=== PATIENT | female | born 1970 | race Caucasian/White ===

== ENCOUNTER 2018-01-24 16:52 | Inpatient (IN) | payer BC, SELFPAY ==
[2018-01-24] MEDS ORDERED: diphenhydrAMINE 50 MG/ML VIAL ONE (17:16)
[2018-01-24] MEDS ORDERED: Acetaminophen 500 MG TAB ONE (17:16)
[2018-01-24] MEDS ORDERED: Metoclopramide HCl 10 MG/2 ML VIAL ONE (17:16)
[2018-01-24 17:22] LABS: #Basophils 0.1 thou/uL (0.0-0.2); #Lymphocytes 3.4 thou/uL (1.20-3.40); #Monocytes 1.9 thou/uL (0.11-0.59); #Neutrophils 12.5 thou/uL (1.40-6.50); %Basophils 0.5 % (0.0-1.0); %Eosinophils 0.2 % (0.0-10.0); %Monocytes 10.5 % (0.0-10.0); %Neutrophils 69.8 % (42.0-75.0); Hemoglobin 14.9 g/dL (12.0-16.0); Mean Corpuscular HGB CONC 35.9 g/dL (32.0-36.0); Mean Corpuscular Hemoglobin 33.2 pg (27.0-31.0); Mean Corpuscular Volume 92.6 fl (81.0-99.0); Platelet Count 360 thou/uL (130-400); RBC Distribution Width 11.4 % (11.5-14.5); Red Blood Cell (RBC) Count 4.49 mill/uL (4.20-5.40); White Blood Cell (WBC) Count 17.9 thou/uL (4.8-10.8)
[2018-01-24 17:23] LABS: Bilirubin Negative (Negative); Blood, Urine Moderate (Negative); Clarity CLOUDY (Clear); Glucose, Urine (Dipstick) Negative (Negative); Leukocyte Moderate (Negative); Nitrite Positive (Negative); Protein, Urine (Dipstick) 30 mg/dL (Neg-Trace); Specific Gravity, Urine 1.016 (1.002-1.036)
[2018-01-24 17:25] LABS: Bacteria/HPF 4+ HPF (None Seen); Hyaline Casts/LPF 0-3 HYALINE CAST LPF (0-3 Hyaline); Pathc Cast-AUWi Flag 0.14 (0-2.49); RBC/HPF 21-50 HPF (0-3); Squamous Epithelial 0-3 HPF (0-3); WBC/HPF 21-50 HPF (0-3)
[2018-01-24 17:48] LABS: ALT (SGPT) 33 U/L (8-55); AST (SGOT) 32 U/L (5-34); Albumin 4.4 g/dL (3.5-5.0); Alkaline Phosphatase 79 U/L (40-150); Anion Gap 16 mmol/L (10-20); BUN (Urea Nitrogen) 11 mg/dL (7.0-18.7); Bilirubin, Total 1.1 mg/dL (0.2-1.2); Calc. Creatinine Clearance 0 mL/min (70-130); Calcium 9.3 mg/dL (7.8-10.44); Carbon Dioxide 19 mmol/L (22-29); Chloride 104 mmol/L (98-107); Estimated GFR-MDRD 73; Globulin 3.5 g/dL (2.4-3.5); Glucose 143 mg/dL (70-105); Protein, Total 7.9 g/dL (6.0-8.3); Sodium 135 mmol/L (136-145)
[2018-01-24] MEDS ORDERED: cefTRIAXone\\ROCEPHIN 2 GM in Sodium Chloride 0.9% 100 ML IVPB ONE (18:00)
[2018-01-24] MEDS ORDERED: cefTRIAXone\\ROCEPHIN 2 GM VIAL ONE (18:06)
[2018-01-24] MEDS ORDERED: Ketorolac Tromethamine 30 MG/ML VIAL ONE (18:27)
--- NOTE | 2018-01-24 19:13 | CT ---
CT ABDOMEN AND PELVIS WITHOUT IV CONTRAST 01/24/18 Multiple axial tomograms obtained through the abdomen and pelvis without IV enhancement. INDICATIONS: Fever, hematuria, UTI. Lung bases are clear. Liver, spleen and pancreas appear unremarkable given limitations of a noncontrast study. Patient is p ost cholecystectomy. Adrenal glands are normal. Kidneys show no evidence of hydronephrosis. No evidence of urinary tract calculus. Kidneys unremarkab le for an nonenhanced study. Bowel loops appear normal. Appendix appears normal. Stool throughout colon. Images through pelvis show evidence of hysterectomy. Urinary bladder unremarkable. No adenopathy. There is nonspecific haziness in the mesentery. More prominent in the left abdomen. IMPRESSION: 1. Mesenteric haziness more prominent in the left abdomen. This is nonspecific but can be seen w ith mesenteritis. 2. Otherwise no acute intra-abdominal process identified. POS: KALYN
[2018-01-24] MEDS ORDERED: Ondansetron ODT 4 MG TAB SL PRN (19:39)
[2018-01-24] MEDS ORDERED: Acetaminophen 325 MG TAB PO PRN (19:39)
[2018-01-24] MEDS ORDERED: Ondansetron HCl/PF 4 MG/2 ML Vial IVP PRN (19:39)
[2018-01-24] MEDS ORDERED: Temazepam 15 MG CAP PO PRN (20:14)
[2018-01-24] MEDS ORDERED: hydrALAZINE 20 MG/ML VIAL SLOW IVP PRN (20:14)
[2018-01-24] MEDS ORDERED: Senokot 8.6 MG TAB PO PRN (20:14)
[2018-01-24] MEDS ORDERED: Lorazepam 1 MG TAB PO PRN (20:14)
[2018-01-24] MEDS ORDERED: cloNIDine 0.1 MG TAB PO PRN (20:14)
[2018-01-24] MEDS ORDERED: Loratadine 10 MG TAB PO PRN (20:14)
[2018-01-24] MEDS ORDERED: Diabetic Tussin 200 MG/10 ML UDCUP PO PRN (20:14)
[2018-01-24] MEDS ORDERED: Bisacodyl 5 MG TAB PO PRN (20:14)
[2018-01-24] MEDS ORDERED: Benzonatate 100 MG CAP PO PRN (20:14)
[2018-01-24] MEDS ORDERED: Calcium Carbonate 500 MG ChewTAB PO PRN (20:14)
[2018-01-24] MEDS ORDERED: Mag-Al 1200 mg/1200 mg/30 ML UDCUP PO PRN (20:14)
[2018-01-24] MEDS ORDERED: traMADol HCl 50 MG TAB PO PRN (20:14)
[2018-01-24] MEDS ORDERED: Pramipexole Di-HCl 0.25 MG TAB PO PRN (20:18)
[2018-01-24] MEDS ORDERED: CERTOLIZUMAB PEGOL 400 MG SQ SCH (20:30)
--- NOTE | 2018-01-24 21:14 | HP ---
PRIMARY CARE PHYSICIAN: Out of town in [facility], Dr. Paresh Newton. CHIEF COMPLAINT: Dysuria and increased urinary frequency as well as fever and chills. HISTORY OF PRESENT ILLNESS: Ms. Sultana is a very pleasant 47-year-old female with history of rheuma toid arthritis on immunosuppressive medication as well as history of recurrent urinary tract infectio n including ESBL UTI, who presented to the emergency room with above-mentioned complaint. History is mainly obtained by the patient herself and electronic medical records have been reviewed. Case has been discussed with emergency room physician. She was last admitted to our facility in March last y ear for treatment for acute pancreatitis of unclear etiology. Today, she presented to the emergency room as she has been having about 5-day symptoms of generalized malaise, low back pain and urinary frequency. She tried some leftover antibiotics including Bactrim at home without any relief. She has been running low grade fevers and has been having chills. When her symptoms did not resolve with outpatient antibiotic, she presented to the ER. She reports that she has history of recurrent urinary tract infection and follows up with a urologist in the [facility]. She has been prescribed Macrobid a few days ago, but that did not help her symptoms as well. Upon presentation to the emergency room, she had high fever at 104 degrees rectally and was tachycard ic with a pulse of 124. Her blood work revealed leukocytosis with WBCs of 17.9 and she had elevated lactic acid at 3.4. Her urinalysis had multiple leukocyte esterase, rbc's, wbc's and bacteria. She received IV Rocephin in the emergency room and is now being admitted to the hospital for sepsis secon reji to urinary tract infection. PAST MEDICAL HISTORY: 1. Rheumatoid arthritis, on immunosuppressive medications. 2. History of ESBL urinary tract infection. 3. Metabolic syndrome. 4. Nonalcoholic steatohepatitis. 5. History of Clostridium difficile colitis. 6. Mild depression. 7. History of pancreatitis of unclear etiology in 2017. PAST SURGICAL HISTORY: Cholecystectomy, hysterectomy, breast implants. ALLERGIES: No medication allergies. 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 FAMILY HISTORY: No history of GI malignancy. Heart disease runs in her family. CURRENT HOME MEDICATIONS: As follows: Aldactone 100 mg daily, Cimzia 400 mg subcutaneous as directe d, Prevacid 15 mg daily, Celexa 60 mg daily, and pramipexole 0.25 mg p.r.n. REVIEW OF SYSTEMS: The following complete review of systems was negative, unless otherwise mentioned in the HPI or below: Constitutional: Weight loss or gain, ability to conduct usual activities. Sk in: Rash, itching. Eyes: Double vision, pain. ENT/Mouth: Nose bleeding, neck stiffness, pain, te nderness. Cardiovascular: Palpitations, dyspnea on exertion, orthopnea. Respiratory: Shortness of breath, wheezing, cough, hemoptysis, fever or night sweats. Gastrointestinal: Poor appetite, abdom inal pain, heartburn, nausea, vomiting, constipation, or diarrhea. Genitourinary: Urgency, frequenc y, dysuria, nocturia. Musculoskeletal: Pain, swelling. Neurologic/Psychiatric: Anxiety, depressio n. Allergy/Immunologic: Skin rash, bleeding tendency. It is negative except for those mentioned in the history and physical. LABORATORY DATA: CBC shows WBC 17.9 with 69% neutrophils, otherwise unremarkable. Serum chemistries : Sodium 135, bicarbonate 19, blood sugar 143, lactic acid 3.4. Urinalysis was positive for protein , blood, nitrite, leukocyte esterase, wbc, rbc and bacteria. CT scan of the abdomen and pelvis witho ut contrast is done and it is negative for any nephrolithiasis or pyelonephritis. She has slight mes enteric haziness in the left abdomen, which can be seen with mesenteritis. PHYSICAL EXAMINATION: VITAL SIGNS: Most recent vital signs, temperature 100.2, pulse of 99, respirations 18, saturating 95 % on room air, blood pressure 97/62. GENERAL: No acute distress, awake, alert, oriented x3. HEENT: Mucous membrane is moist and pink. No oropharyngeal exudate or erythema. Head is normocepha lic, atraumatic. Pupils equal, reactive to light and accommodation. NECK: Supple without any lymphadenopathy, JVD or bruit. CHEST: Clear to auscultation without any wheezing, rales or rhonchi. Rhythm is regular without any murmur, rubs or gallops. ABDOMEN: Soft, nontender, nondistended, positive bowel sounds, no CVA tenderness. EXTREMITIES: Free of any cyanosis, clubbing, or edema. NEUROLOGIC: Nonfocal. SKIN: Free of any rashes or bruises. PSYCHIATRIC: Normal affect. IMPRESSION AND PLAN: 1. Sepsis. This is secondary to urinary tract infection. The patient has history of extended spect rum beta-lactamase urinary tract infection, and for this reason, she will be treated with meropenem f or now. We will follow the results of the urine and blood cultures. Continue gentle IV fluid for hy dration and sepsis. Repeat the lactic acid as per the sepsis protocol. At this time, there is no ev idence of nephrolithiasis or hydronephrosis or pyelonephritis. 2. Hyponatremia, likely secondary to ongoing infection and poor p.o. intake. We will start on huan l saline and monitor closely. 3. History of rheumatoid arthritis. Continue home medications as below. 4. History of Clostridium difficile colitis. Currently, no symptoms. 5. Deep venous thrombosis and gastrointestinal prophylaxis. 6. P.r.n. medications and supportive care. DISPOSITION: Ms. Sultana is currently being admitted to the hospital for sepsis and urinary tract in fection. Further management will depend upon her clinical course. Estimated length of stay is at ast 2-3 midnights.
[2018-01-24] MEDS: MEROPENEM 1 GM/50 ML 1 GM in Premix Bag 1 BAG IVPB SCH (21:20)
[2018-01-24] MEDS: Sodium Chloride 0.9% 1,000 ML IV SCH (21:20)
[2018-01-24 21:26] LABS: Lactic Acid 1.9 mmol/L (0.5-2.2)
[2018-01-24 21:53] VITALS: BMI 30.9
[2018-01-24] MEDS ORDERED: Meropenem 1 GM in Sodium Chloride 0.9% 100 ML IVPB SCH (22:00)
[2018-01-25] MEDS: Acetaminophen 325 MG TAB PO PRN ×4 (00:06→23:12)
[2018-01-25] MEDS: Ibuprofen 200 MG TAB PO PRN ×3 (01:52→22:46)
[2018-01-25] MEDS ORDERED: Ketorolac Tromethamine 30 MG/ML VIAL ONE (02:48)
[2018-01-25] MEDS ORDERED: Ketorolac Tromethamine 30 MG/ML VIAL IVP SCH (03:00)
[2018-01-25 04:48] LABS: #Basophils 0.1 thou/uL (0.0-0.2); #Eosinphils 0.1 thou/uL (0.0-0.7); #Lymphocytes 3.5 thou/uL (1.20-3.40); #Monocytes 2.1 thou/uL (0.11-0.59); #Neutrophils 9.6 thou/uL (1.40-6.50); %Basophils 0.4 % (0.0-1.0); %Eosinophils 0.3 % (0.0-10.0); %Lymphocytes 22.9 % (21.0-51.0); %Monocytes 13.8 % (0.0-10.0); %Neutrophils 62.5 % (42.0-75.0); Hemoglobin 12.7 g/dL (12.0-16.0); Mean Corpuscular HGB CONC 35.4 g/dL (32.0-36.0); Mean Corpuscular Hemoglobin 33.3 pg (27.0-31.0); Mean Corpuscular Volume 93.9 fl (81.0-99.0); Mean Platelet Volume 6.1 fL (7.4-10.4); Platelet Count 297 thou/uL (130-400); RBC Distribution Width 11.5 % (11.5-14.5); Red Blood Cell (RBC) Count 3.82 mill/uL (4.20-5.40); White Blood Cell (WBC) Count 15.3 thou/uL (4.8-10.8)
[2018-01-25 04:57] LABS: Anion Gap 9 mmol/L (10-20); BUN (Urea Nitrogen) 8 mg/dL (7.0-18.7); Calc. Creatinine Clearance 128 mL/min (70-130); Calcium 8.3 mg/dL (7.8-10.44); Carbon Dioxide 24 mmol/L (22-29); Chloride 110 mmol/L (98-107); Estimated GFR-MDRD Greater than 90; Glucose 122 mg/dL (70-105); Potassium 3.4 mmol/L (3.5-5.1); Sodium 140 mmol/L (136-145)
[2018-01-25] MEDS: MEROPENEM 1 GM/50 ML 1 GM in Premix Bag 1 BAG IVPB SCH ×3 (05:07→20:43)
[2018-01-25] MEDS ORDERED: Potassium Chloride 20 MEQ TAB PO SCH (06:45)
[2018-01-25] MEDS: Spironolactone 100 MG TAB PO SCH (08:36)
[2018-01-25] MEDS: Citalopram 20 MG TAB PO SCH (08:37)
[2018-01-25] MEDS: Enoxaparin Sodium 40 MG/0.4 ML SYRINGE SC SCH (08:37)
[2018-01-25] MEDS: Sodium Chloride 0.9% 1,000 ML IV SCH ×2 (08:46→23:12)
[2018-01-25] MEDS: Ketorolac Tromethamine 30 MG/ML VIAL IVP PRN ×2 (11:23→20:41)
--- NOTE | 2018-01-25 12:55 | PDOC.PN ---
- Subjective Encounter Start Date: 01/25/18 Encounter Start Time: 12:53 Subjective: had fever w headcahe last night.fells slightly beter but not at baseline ye -: no dysuria any more.no AP,nausea/vomiting - Objective MAR Reviewed: Yes Vital Signs & Weight: Vital Signs (12 hours) Temp Pulse Resp BP Pulse Ox 01/25/18 11:12 99.8 F H 101 H 20 106/74 97 01/25/18 08:00 98.3 F 85 18 01/25/18 07:20 98.3 F 85 18 97/64 94 L 01/25/18 05:06 98.8 F 94 20 94/62 95 I&O: 01/24/18 01/25/18 01/26/18 06:59 06:59 06:59 Intake Total 240 Balance 240 Result Diagrams: 01/25/18 04:16 01/25/18 04:16 Additional Labs: Microbiology 01/24/18 17:12 Venous blood - Right Arm Blood Culture - Preliminary Specimen has been received and culture in progress. No Growth to date. 01/24/18 17:12 Venous blood - Left Arm Blood Culture - Preliminary Specimen has been received and culture in progress. No Growth to date. Phys Exam - Physical Examination Constitutional: NAD HEENT: PERRLA, moist MMs, sclera anicteric, TM's clear, oral pharynx no lesions , 2+ tonsils Neck: no nodes, no JVD, supple, full ROM Respiratory: no wheezing, no rales, no rhonchi, clear to auscultation bilateral Cardiovascular: RRR, no significant murmur, no rub Gastrointestinal: soft, non-tender, no distention, positive bowel sounds Musculoskeletal: no edema, pulses present Neurological: non-focal, normal sensation, moves all 4 limbs Psychiatric: normal affect, A&O x 3 Skin: no rash Dx/Plan (1) Sepsis Code(s): A41.9 - SEPSIS, UNSPECIFIED ORGANISM Status: Acute (2) UTI (urinary tract infection) Status: Acute (3) Rheumatoid arthritis Code(s): M06.9 - RHEUMATOID ARTHRITIS, UNSPECIFIED Status: Chronic - Plan continue antibiotics, out of bed/ambulate, DVT proph w/SCDs WBC trending down.clinically stable. -: cont meropenam given immunocpmpromised status & h/o ESBL UTI -: add prn toradol for symptom relief -: am labs. home meds as below. -: follow Cx results * . Review of Systems - Review of Systems Constitutional: weakness, malaise ENT: Other (headache) Respiratory: negative: Cough, Dry, Shortness of Breath, Hemoptysis, SOB with Excertion, Pleuritic Pain, Sputum, Wheezing Cardiovascular: negative: chest pain, palpitations, orthopnea, paroxysmal nocturnal dyspnea, edema, light headedness, other Gastrointestinal: negative: Nausea, Vomiting, Abdominal Pain, Diarrhea, Constipation, Melena, Hematochezia, Other Genitourinary: negative: Dysuria, Frequency, Incontinence, Hematuria, Retention , Other Musculoskeletal: negative: Neck Pain, Shoulder Pain, Arm Pain, Back Pain, Hand Pain, Leg Pain, Foot Pain, Other Skin: negative: Rash, Lesions, Carlos, Bruising, Other Neurological: negative: Weakness, Numbness, Incoordination, Change in Speech, Confusion, Seizures, Other - Medications/Allergies Allergies/Adverse Reactions: Allergies Allergy/AdvReac Type Severity Reaction Status Date / Time No Known Drug Allergies Allergy Verified 04/10/17 23:51 Medications: Current Medications Acetaminophen (Tylenol) 650 mg PO Q4H PRN PRN Reason: Headache/Fever or Pain 1-4 Last Admin: 01/25/18 11:33 Dose: 650 mg Hydrocodone Bitart/Acetaminophen ([place] 5/325) 1 tab PO Q4H PRN PRN Reason: Moderate to Severe Pain (5-10) Al Hydroxide/Mg Hydroxide (Maalox) 30 ml PO Q6H PRN PRN Reason: Heartburn or Indigestion Benzonatate (Tessalon) 100 mg PO Q4H PRN PRN Reason: Cough Bisacodyl (Dulcolax) 10 mg PO DAILYPRN PRN PRN Reason: Constipation Calcium Carbonate (Tums) 1,000 mg PO Q4H PRN PRN Reason: Heartburn or Indigestion Citalopram Hydrobromide (Celexa) 60 mg PO DAILY [facility] Last Admin: 01/25/18 08:37 Dose: 60 mg Clonidine (Catapres) 0.1 mg PO Q4H PRN PRN Reason: Systolic BP > 160 Enoxaparin Sodium (Lovenox) 40 mg SC 0900 [facility] Last Admin: 01/25/18 08:37 Dose: 40 mg Guaifenesin (Robitussin Sf) 200 mg PO Q4H PRN PRN Reason: Cough Hydralazine HCl (Apresoline) 10 mg SLOW IVP Q4H PRN PRN Reason: Systolic BP > 170 Sodium Chloride (Normal Saline 0.9%) 1,000 mls @ 75 mls/hr IV .[id number] [facility] Last Admin: 01/25/18 08:46 Dose: 1,000 mls Meropenem 1 gm/ Device 50 mls @ 100 mls/hr IVPB Q8HR [facility] Last Admin: 01/25/18 05:07 Dose: 50 mls Ibuprofen (Motrin) 400 mg PO Q4H PRN PRN Reason: PAIN/FEVER Last Admin: 01/25/18 01:52 Dose: 400 mg Ketorolac Tromethamine (Toradol) 15 mg IVP Q6H PRN PRN Reason: Pain Stop: 01/30/18 10:46 Last Admin: 01/25/18 11:23 Dose: 15 mg Loratadine (Claritin) 10 mg PO DAILYPRN PRN PRN Reason: Sinus Symptoms Lorazepam (Ativan) 1 mg PO Q4H PRN PRN Reason: Anxiety/Agitation (Certolizumab Pegol ([Cimzia] 400 Mg)) 400 mg SQ ASDIR [facility] Ondansetron HCl (Zofran) 4 mg IVP Q6H PRN PRN Reason: Nausea/Vomiting Pantoprazole Sodium (Protonix) 40 mg PO DAILY [facility] Last Admin: 01/25/18 08:37 Dose: 40 mg Pramipexole Dihydrochloride (Mirapex) 0.25 mg PO DAILYPRN PRN PRN Reason: restless leg Senna (Senokot) 2 tab PO HSPRN PRN PRN Reason: Constipation Spironolactone (Aldactone) 100 mg PO DAILY [facility] Last Admin: 01/25/18 08:36 Dose: 100 mg Temazepam (Restoril) 15 mg PO HSPRN PRN PRN Reason: Insomnia
[2018-01-25] MEDS: HYDROcodone/Acetaminophen 5/325 mg Tablet PO PRN (13:52)
[2018-01-25] MEDS: Ondansetron HCl/PF 4 MG/2 ML Vial IVP PRN (23:01)
[2018-01-25] MEDS ORDERED: Acetaminophen 325 MG TAB PO SCH (23:15)
[2018-01-25] MEDS ORDERED: Sodium Chloride 0.9% 500 ML IV SCH (23:15)
[2018-01-26] MEDS: HYDROcodone/Acetaminophen 5/325 mg Tablet PO PRN ×3 (01:31→22:39)
[2018-01-26] MEDS: Acetaminophen 325 MG TAB PO PRN (03:13)
[2018-01-26] MEDS: Ketorolac Tromethamine 30 MG/ML VIAL IVP PRN ×2 (03:15→16:07)
[2018-01-26] MEDS: MEROPENEM 1 GM/50 ML 1 GM in Premix Bag 1 BAG IVPB SCH ×3 (05:08→21:57)
[2018-01-26] MEDS: Enoxaparin Sodium 40 MG/0.4 ML SYRINGE SC SCH (08:36)
[2018-01-26] MEDS: Citalopram 20 MG TAB PO SCH (08:38)
[2018-01-26] MEDS: Spironolactone 100 MG TAB PO SCH (09:00)
[2018-01-26 09:56] LABS: #Basophils 0.1 thou/uL (0.0-0.2); #Eosinphils 0.2 thou/uL (0.0-0.7); #Lymphocytes 3.2 thou/uL (1.20-3.40); #Monocytes 1.1 thou/uL (0.11-0.59); %Basophils 0.5 % (0.0-1.0); %Eosinophils 1.4 % (0.0-10.0); %Lymphocytes 27.9 % (21.0-51.0); %Monocytes 9.8 % (0.0-10.0); %Neutrophils 60.5 % (42.0-75.0); Mean Corpuscular HGB CONC 33.7 g/dL (32.0-36.0); Mean Corpuscular Hemoglobin 32.5 pg (27.0-31.0); Mean Corpuscular Volume 96.4 fl (81.0-99.0); Mean Platelet Volume 6.3 fL (7.4-10.4); Platelet Count 301 thou/uL (130-400); RBC Distribution Width 11.5 % (11.5-14.5); White Blood Cell (WBC) Count 11.6 thou/uL (4.8-10.8)
[2018-01-26 10:20] LABS: Anion Gap 9 mmol/L (10-20); BUN (Urea Nitrogen) 6 mg/dL (7.0-18.7); Calc. Creatinine Clearance 128 mL/min (70-130); Calcium 8.7 mg/dL (7.8-10.44); Carbon Dioxide 29 mmol/L (22-29); Chloride 106 mmol/L (98-107); Estimated GFR-MDRD Greater than 90; Glucose 134 mg/dL (70-105); Potassium 3.8 mmol/L (3.5-5.1); Sodium 140 mmol/L (136-145)
[2018-01-26] MEDS: Ibuprofen 200 MG TAB PO PRN ×2 (10:42→22:43)
[2018-01-26] MEDS: Sodium Chloride 0.9% 1,000 ML IV SCH ×2 (11:00→19:32)
--- NOTE | 2018-01-26 12:40 | PDOC.PN ---
- Subjective Encounter Start Date: 01/26/18 Encounter Start Time: 12:38 Subjective: high fever last night w headache ,slightly better this am -: no chills,no dysuria,no diarrhea,no SOB/COUGH -: received fluid bolus yesterday & felt better - Objective MAR Reviewed: Yes Vital Signs & Weight: Vital Signs (12 hours) Temp Pulse Resp BP Pulse Ox 01/26/18 10:53 99.2 F 87 16 109/69 96 01/26/18 08:00 98.2 F 77 16 01/26/18 07:01 98.2 F 77 16 90/59 L 95 01/26/18 05:07 98.2 F 72 20 91/59 L 94 L 01/26/18 01:31 99.5 F I&O: 01/25/18 01/26/18 01/27/18 06:59 06:59 06:59 Intake Total 2470 240 Balance 2470 240 Result Diagrams: 01/26/18 09:21 01/26/18 09:21 Additional Labs: Microbiology 01/24/18 17:16 Urine clean catch Urine Culture - Preliminary Escherichia coli 01/24/18 17:12 Venous blood - Right Arm Blood Culture - Preliminary Specimen has been received and culture in progress. No Growth to date. 01/24/18 17:12 Venous blood - Left Arm Blood Culture - Preliminary Specimen has been received and culture in progress. No Growth to date. LABS REVIEWED Phys Exam - Physical Examination Constitutional: NAD HEENT: PERRLA, moist MMs, sclera anicteric, oral pharynx no lesions Neck: no nodes, no JVD, supple, full ROM Respiratory: no wheezing, no rales, no rhonchi, clear to auscultation bilateral Cardiovascular: RRR, no significant murmur, no rub Gastrointestinal: soft, non-tender, no distention, positive bowel sounds Musculoskeletal: no edema, pulses present Neurological: non-focal, normal sensation, moves all 4 limbs Psychiatric: normal affect, A&O x 3 Skin: no rash Dx/Plan (1) Sepsis Code(s): A41.9 - SEPSIS, UNSPECIFIED ORGANISM Status: Acute (2) UTI (urinary tract infection) Status: Acute Comment: RESISTANT E.COLI,SENSITIVE TO MEROPENAM (3) Rheumatoid arthritis Code(s): M06.9 - RHEUMATOID ARTHRITIS, UNSPECIFIED Status: Chronic - Plan continue antibiotics, DVT proph w/SCDs increase IVF given low BP and fever,tachycardia -: blood Cx remain negative.if fever persists,repeat Cx & consult ID -: greg tavarez for now.hakeem will need 1 more day to turn around -: home meds as below -: am labs. * . Review of Systems - Review of Systems Constitutional: fever, weakness, malaise ENT: negative: Ear Pain, Ear Discharge, Nose Pain, Nose Discharge, Nose Congestion, Mouth Pain, Mouth Swelling, Throat Pain, Throat Swelling, Other Respiratory: negative: Cough, Dry, Shortness of Breath, Hemoptysis, SOB with Excertion, Pleuritic Pain, Sputum, Wheezing Cardiovascular: negative: chest pain, palpitations, orthopnea, paroxysmal nocturnal dyspnea, edema, light headedness, other Gastrointestinal: negative: Nausea, Vomiting, Abdominal Pain, Diarrhea, Constipation, Melena, Hematochezia, Other Genitourinary: negative: Dysuria, Frequency, Incontinence, Hematuria, Retention , Other Musculoskeletal: negative: Neck Pain, Shoulder Pain, Arm Pain, Back Pain, Hand Pain, Leg Pain, Foot Pain, Other Skin: negative: Rash, Lesions, Carlos, Bruising, Other Neurological: negative: Weakness, Numbness, Incoordination, Change in Speech, Confusion, Seizures, Other - Medications/Allergies Allergies/Adverse Reactions: Allergies Allergy/AdvReac Type Severity Reaction Status Date / Time No Known Drug Allergies Allergy Verified 04/10/17 23:51 Medications: Current Medications Acetaminophen (Tylenol) 650 mg PO Q4H PRN PRN Reason: Headache/Fever or Pain 1-4 Last Admin: 01/26/18 03:13 Dose: 650 mg Hydrocodone Bitart/Acetaminophen ([place] 5/325) 1 tab PO Q4H PRN PRN Reason: Moderate to Severe Pain (5-10) Last Admin: 01/26/18 01:31 Dose: 1 tab Al Hydroxide/Mg Hydroxide (Maalox) 30 ml PO Q6H PRN PRN Reason: Heartburn or Indigestion Benzonatate (Tessalon) 100 mg PO Q4H PRN PRN Reason: Cough Bisacodyl (Dulcolax) 10 mg PO DAILYPRN PRN PRN Reason: Constipation Calcium Carbonate (Tums) 1,000 mg PO Q4H PRN PRN Reason: Heartburn or Indigestion Citalopram Hydrobromide (Celexa) 60 mg PO DAILY ON [facility] OF [facility] Last Admin: 01/26/18 08:38 Dose: 60 mg Clonidine (Catapres) 0.1 mg PO Q4H PRN PRN Reason: Systolic BP > 160 Enoxaparin Sodium (Lovenox) 40 mg SC 0900 ON [facility] OF [facility] Last Admin: 01/26/18 08:36 Dose: 40 mg Guaifenesin (Robitussin Sf) 200 mg PO Q4H PRN PRN Reason: Cough Hydralazine HCl (Apresoline) 10 mg SLOW IVP Q4H PRN PRN Reason: Systolic BP > 170 Sodium Chloride (Normal Saline 0.9%) 1,000 mls @ 100 mls/hr IV .Q10H ON [facility] OF [facility] Last Admin: 01/25/18 23:12 Dose: 1,000 mls Meropenem 1 gm/ Device 50 mls @ 100 mls/hr IVPB Q8HR ON [facility] OF [facility] Last Admin: 01/26/18 05:08 Dose: 50 mls Ibuprofen (Motrin) 400 mg PO Q4H PRN PRN Reason: PAIN/FEVER Last Admin: 01/26/18 10:42 Dose: 400 mg Ketorolac Tromethamine (Toradol) 15 mg IVP Q6H PRN PRN Reason: Pain Stop: 01/30/18 10:46 Last Admin: 01/26/18 03:15 Dose: 15 mg Loratadine (Claritin) 10 mg PO DAILYPRN PRN PRN Reason: Sinus Symptoms Lorazepam (Ativan) 1 mg PO Q4H PRN PRN Reason: Anxiety/Agitation Ondansetron HCl (Zofran) 4 mg IVP Q6H PRN PRN Reason: Nausea/Vomiting Last Admin: 01/25/18 23:01 Dose: 4 mg Pantoprazole Sodium (Protonix) 40 mg PO DAILY [facility] Last Admin: 01/26/18 08:39 Dose: 40 mg Pramipexole Dihydrochloride (Mirapex) 0.25 mg PO DAILYPRN PRN PRN Reason: restless leg Senna (Senokot) 2 tab PO HSPRN PRN PRN Reason: Constipation Spironolactone (Aldactone) 100 mg PO DAILY [facility] OF [facility] Last Admin: 01/26/18 09:00 Dose: 100 mg Temazepam (Restoril) 15 mg PO HSPRN PRN PRN Reason: Insomnia
[2018-01-26] MEDS ORDERED: Saccharomyces boulardii 250 MG CAP PO SCH (18:30)
[2018-01-26] MEDS ORDERED: Acetaminophen 325 MG TAB PO PRN (22:40)
[2018-01-27 05:18] LABS: #Eosinphils 0.2 thou/uL (0.0-0.7); #Lymphocytes 4.4 thou/uL (1.20-3.40); #Neutrophils 4.9 thou/uL (1.40-6.50); %Basophils 0.4 % (0.0-1.0); %Eosinophils 2.3 % (0.0-10.0); %Lymphocytes 41.1 % (21.0-51.0); %Monocytes 9.6 % (0.0-10.0); %Neutrophils 46.6 % (42.0-75.0); Mean Corpuscular HGB CONC 34.7 g/dL (32.0-36.0); Mean Corpuscular Hemoglobin 33.1 pg (27.0-31.0); Mean Corpuscular Volume 95.4 fl (81.0-99.0); Platelet Count 332 thou/uL (130-400); RBC Distribution Width 11.2 % (11.5-14.5); Red Blood Cell (RBC) Count 3.62 mill/uL (4.20-5.40); White Blood Cell (WBC) Count 10.6 thou/uL (4.8-10.8)
[2018-01-27 05:27] LABS: Anion Gap 9 mmol/L (10-20); BUN (Urea Nitrogen) 7 mg/dL (7.0-18.7); Calc. Creatinine Clearance 130 mL/min (70-130); Calcium 8.5 mg/dL (7.8-10.44); Carbon Dioxide 29 mmol/L (22-29); Chloride 108 mmol/L (98-107); Estimated GFR-MDRD Greater than 90; Glucose 134 mg/dL (70-105); Potassium 3.6 mmol/L (3.5-5.1); Sodium 142 mmol/L (136-145)
[2018-01-27] MEDS: MEROPENEM 1 GM/50 ML 1 GM in Premix Bag 1 BAG IVPB SCH ×2 (05:36→13:22)
[2018-01-27] MEDS: Sodium Chloride 0.9% 1,000 ML IV SCH ×2 (05:36→17:21)
[2018-01-27] MEDS: Citalopram 20 MG TAB PO SCH (09:55)
[2018-01-27] MEDS: Saccharomyces boulardii 250 MG CAP PO SCH (09:56)
[2018-01-27] MEDS: Spironolactone 100 MG TAB PO SCH (09:56)
[2018-01-27] MEDS: Enoxaparin Sodium 40 MG/0.4 ML SYRINGE SC SCH (09:57)
[2018-01-27] MEDS: Acetaminophen 325 MG TAB PO PRN ×2 (09:57→13:22)
[2018-01-27] MEDS ORDERED: Cyclobenzaprine 10 MG TAB PO SCH (11:00)
--- NOTE | 2018-01-27 12:37 | PDOC.PN ---
- Subjective Encounter Start Date: 01/27/18 Encounter Start Time: 12:35 Subjective: feels a little better but has headache -: feels chills and then gets muscles tensed.low grade fever -: no nausea/vomiting/diarrhea/dysuria/back pain - Objective MAR Reviewed: Yes Vital Signs & Weight: Vital Signs (12 hours) Temp Pulse Resp BP Pulse Ox 01/27/18 11:28 100.4 F H 01/27/18 09:54 99.4 F 01/27/18 08:00 98.7 F 82 14 97 01/27/18 07:49 98.7 F 82 14 118/79 97 01/27/18 04:00 98.3 F 81 16 104/68 96 01/27/18 02:00 98.7 F I&O: 01/26/18 01/27/18 01/28/18 06:59 06:59 06:59 Intake Total 2470 2370 Balance 2470 2370 Result Diagrams: 01/27/18 04:59 01/27/18 04:59 Additional Labs: Microbiology 01/24/18 17:16 Urine clean catch Urine Culture - Final Escherichia coli 01/24/18 17:12 Venous blood - Right Arm Blood Culture - Preliminary NO GROWTH AT 48 HOURS 01/24/18 17:12 Venous blood - Left Arm Blood Culture - Preliminary NO GROWTH AT 48 HOURS Phys Exam - Physical Examination Constitutional: NAD HEENT: PERRLA, moist MMs, sclera anicteric, oral pharynx no lesions Neck: no nodes, no JVD, supple, full ROM Respiratory: no wheezing, no rales, no rhonchi, clear to auscultation bilateral Cardiovascular: RRR, no significant murmur, no rub Gastrointestinal: soft, non-tender, no distention, positive bowel sounds Musculoskeletal: no edema, pulses present Neurological: non-focal, normal sensation, moves all 4 limbs Psychiatric: normal affect, A&O x 3 Skin: no rash Dx/Plan (1) Sepsis Code(s): A41.9 - SEPSIS, UNSPECIFIED ORGANISM Status: Acute (2) UTI (urinary tract infection) Status: Acute Comment: RESISTANT E.COLI,SENSITIVE TO MEROPENAM (3) Rheumatoid arthritis Code(s): M06.9 - RHEUMATOID ARTHRITIS, UNSPECIFIED Status: Chronic - Plan PT/OT, DVT proph w/SCDs WBC back to WNL.clinically better -: will need ID consultation for choice of Antibiotic for Dc d/t resistantance -: may need suppressive Rx -: Op urology f/u -: likley Dc tomorrow if remains afebrile for at least 24 hours.am labs * . Review of Systems - Review of Systems Constitutional: fever, chills. negative: sweats, weakness, malaise, other Eyes: negative: Pain, Vision Change, Conjunctivae Inflammation, Eyelid Inflammation, Redness, Other ENT: negative: Ear Pain, Ear Discharge, Nose Pain, Nose Discharge, Nose Congestion, Mouth Pain, Mouth Swelling, Throat Pain, Throat Swelling, Other Respiratory: negative: Cough, Dry, Shortness of Breath, Hemoptysis, SOB with Excertion, Pleuritic Pain, Sputum, Wheezing Cardiovascular: negative: chest pain, palpitations, orthopnea, paroxysmal nocturnal dyspnea, edema, light headedness, other Gastrointestinal: negative: Nausea, Vomiting, Abdominal Pain, Diarrhea, Constipation, Melena, Hematochezia, Other Genitourinary: negative: Dysuria, Frequency, Incontinence, Hematuria, Retention , Other Musculoskeletal: negative: Neck Pain, Shoulder Pain, Arm Pain, Back Pain, Hand Pain, Leg Pain, Foot Pain, Other Skin: negative: Rash, Lesions, Carlos, Bruising, Other Neurological: negative: Weakness, Numbness, Incoordination, Change in Speech, Confusion, Seizures, Other - Medications/Allergies Allergies/Adverse Reactions: Allergies Allergy/AdvReac Type Severity Reaction Status Date / Time No Known Drug Allergies Allergy Verified 04/10/17 23:51 Medications: Current Medications Acetaminophen (Tylenol) 650 mg PO Q4H PRN PRN Reason: Headache/Fever or Pain 1-4 Last Admin: 01/27/18 09:57 Dose: 650 mg Acetaminophen (Tylenol) 325 mg PO Q4H PRN PRN Reason: TO GIVE WITH [place] 5/325 Hydrocodone Bitart/Acetaminophen ([place] 5/325) 1 tab PO Q4H PRN PRN Reason: Moderate to Severe Pain (5-10) Last Admin: 01/26/18 22:39 Dose: 1 tab Al Hydroxide/Mg Hydroxide (Maalox) 30 ml PO Q6H PRN PRN Reason: Heartburn or Indigestion Benzonatate (Tessalon) 100 mg PO Q4H PRN PRN Reason: Cough Bisacodyl (Dulcolax) 10 mg PO DAILYPRN PRN PRN Reason: Constipation Calcium Carbonate (Tums) 1,000 mg PO Q4H PRN PRN Reason: Heartburn or Indigestion Citalopram Hydrobromide (Celexa) 60 mg PO DAILY [facility] Last Admin: 01/27/18 09:55 Dose: 60 mg Clonidine (Catapres) 0.1 mg PO Q4H PRN PRN Reason: Systolic BP > 160 Cyclobenzaprine HCl (Flexeril) 10 mg PO NOW [facility] Stop: 01/27/18 13:00 Last Admin: 01/27/18 11:20 Dose: 10 mg Enoxaparin Sodium (Lovenox) 40 mg SC 0900 [facility] Last Admin: 01/27/18 09:57 Dose: 40 mg Guaifenesin (Robitussin Sf) 200 mg PO Q4H PRN PRN Reason: Cough Hydralazine HCl (Apresoline) 10 mg SLOW IVP Q4H PRN PRN Reason: Systolic BP > 170 Sodium Chloride (Normal Saline 0.9%) 1,000 mls @ 100 mls/hr IV .Q10H [facility] Last Admin: 01/27/18 05:36 Dose: 1,000 mls Meropenem 1 gm/ Device 50 mls @ 100 mls/hr IVPB Q8HR [facility] Last Admin: 01/27/18 05:36 Dose: 50 mls Ibuprofen (Motrin) 400 mg PO Q4H PRN PRN Reason: PAIN/FEVER Last Admin: 01/26/18 22:43 Dose: 400 mg Ketorolac Tromethamine (Toradol) 15 mg IVP Q6H PRN PRN Reason: Pain Stop: 01/30/18 10:46 Last Admin: 01/26/18 16:07 Dose: 15 mg Loratadine (Claritin) 10 mg PO DAILYPRN PRN PRN Reason: Sinus Symptoms Lorazepam (Ativan) 1 mg PO Q4H PRN PRN Reason: Anxiety/Agitation Ondansetron HCl (Zofran) 4 mg IVP Q6H PRN PRN Reason: Nausea/Vomiting Last Admin: 01/25/18 23:01 Dose: 4 mg Pantoprazole Sodium (Protonix) 40 mg PO DAILY [facility] Last Admin: 01/27/18 09:56 Dose: 40 mg Pramipexole Dihydrochloride (Mirapex) 0.25 mg PO DAILYPRN PRN PRN Reason: restless leg Saccharomyces Boulardii (Florastor) 250 mg PO DAILY [facility] Last Admin: 01/27/18 09:56 Dose: 250 mg Senna (Senokot) 2 tab PO HSPRN PRN PRN Reason: Constipation Sodium Chloride (Flush - Normal Saline) 10 ml IVF Q12HR [facility] Last Admin: 01/27/18 09:57 Dose: 10 ml Sodium Chloride (Flush - Normal Saline) 10 ml IVF PRN PRN PRN Reason: Saline Flush Spironolactone (Aldactone) 100 mg PO DAILY [facility] Last Admin: 01/27/18 09:56 Dose: 100 mg Temazepam (Restoril) 15 mg PO HSPRN PRN PRN Reason: Insomnia
[2018-01-27] MEDS ORDERED: cefTRIAXone\\ROCEPHIN 2 GM in Sodium Chloride 0.9% 100 ML IVPB SCH (17:00)
--- NOTE | 2018-01-27 21:46 | CON ---
DATE OF CONSULTATION: 01/27/2018 REASON FOR CONSULTATION: Invasive urinary tract infection. HISTORY OF PRESENT ILLNESS: A 47-year-old with history of rheumatoid arthritis on Cimzia, immunosuppressive therapy; also a recent history of pancreatitis of unclear etiology who has had history of recurrent episodes of urinary tract infection usually managed in the outpatient setting. She has had a prior diagnosis of ESBL UTIs as well, and developed increased urinary frequency for the past 2 weeks, tried some Bactrim and nitrofurantoin without improvement, and then ended up in the emergency room after she developed general malaise, back pain, and chills as well as fevers. Initial findings included temperature 100.2, pulse 99, respirations 18, O2 sat 95%, blood pressure 97/62. The pertinent findings in the exam included clear lungs, normal heart exam, abdomen soft and nondistended. She was started on meropenem. She is feeling better. The dysuria has resolved. No vomiting. No bleeding. No chest pain. Other 10- point review of systems is as above. PAST MEDICAL HISTORY: Rheumatoid arthritis, recurrent UTIs including episodes of ESBL E. coli infection, steatohepatitis, prior history of C. difficile colitis, pancreatitis of unclear etiology recently. PAST SURGICAL HISTORY: Cholecystectomy, hysterectomy, bladder sling procedure, breast implants. ALLERGIES: None. SOCIAL HISTORY: Works at a [employer]. Never a smoker. Lives in [place]. FAMILY HISTORY: Noncontributory. MEDICATIONS: At this time, Tylenol, Maalox, Tessalon, Dulcolax, Tums, Celexa, Catapres, Lovenox, Robitussin, Apresoline, Motrin, Toradol, Claritin, Ativan, meropenem, pantoprazole, pramipexole, Saccharomyces. PHYSICAL EXAMINATION: VITAL SIGNS: T-max 103.2 and then 100.4, blood pressure 112/74, pulse 79, respirations 14, O2 sat 96%. GENERAL: Appears in no distress. SKIN: Normal. She has a peripheral IV access. Does not have a Chapa catheter. No lymphadenopathy. HEENT: Ocular movements conjugate. Sclerae are white. Pupils are equal. Oral cavity normal. NECK: Supple. LUNGS: With symmetric clear breath sounds. CARDIOVASCULAR: S1, S2 regular rate. No S3, S4. ABDOMEN: Soft. Not distended or tender. No ascites. No bladder distention. EXTREMITIES: No joint inflammatory activity. Moves all extremities equally. NEUROLOGIC: Cognitive function appears to be intact. LABORATORY DATA: White cell count was 17.9, down to 10.6; hemoglobin 12; platelets 332 with a normal differential. Chemistry with a normal creatinine and liver profile. Lactic acid was 3.4 and now is down to 1.9. Urinalysis with 21-50 wbc's, protein 30. Microbiology showed negative blood cultures and E. coli in the urine. E. coli is resistant to Bactrim and quinolones as well as ampicillin. ASSESSMENT: Recurrent urinary tract infections, now with an Escherichia coli urinary tract infection spotted on ESBL strain and we will switch her to Rocephin. Pt has bladder sling suspension to manage incontinence and this procedure is known to be associated with urine bladder retention which increases risk of bladder colonization. PLAN: Discharge on IV Rocephin for another 7-8 days to complete treatment course. Evaluate postvoid residual. The patient had an abdomen and pelvis CT, which did not show any findings of significance. After completion of treatment subsequent issue will be attempt at decreasing risk of recurrences. Secondary prophylaxis with continuous suppression, episodic treatment + post coital prophylaxis are the main options. MTDD
[2018-01-28] MEDS: Acetaminophen 325 MG TAB PO PRN (00:29)
[2018-01-28] MEDS: Ondansetron HCl/PF 4 MG/2 ML Vial IVP PRN (00:45)
[2018-01-28] MEDS: Citalopram 20 MG TAB PO SCH (10:06)
[2018-01-28] MEDS: Sodium Chloride 0.9% 1,000 ML IV SCH (10:06)
[2018-01-28] MEDS: Spironolactone 100 MG TAB PO SCH (10:07)
[2018-01-28] MEDS: Saccharomyces boulardii 250 MG CAP PO SCH (10:07)
[2018-01-28] MEDS: Enoxaparin Sodium 40 MG/0.4 ML SYRINGE SC SCH (10:08)
--- NOTE | 2018-01-28 11:27 | SPC ---
ULTRASOUND GUIDED PICC LINE PLACEMENT: Date: 01/28/18 HISTORY: UTI with need for assisted antibiotics. TECHNIQUE: After informed consent was obtained, the patient was prepped and draped in the normal sterile fashion . After local anesthesia with 1% Xylocaine, a small skin incision with a #11 scalpel blade and a 22 g auge needle was inserted into the left brachial vein at approximately mid humerus level. A sizing wir e was placed and catheter was cut to a length of 42 cm. Catheter position was the superior vena cava/ right atrium junction. The patient tolerated the procedure well. There were no immediate complication s. IMPRESSION: Successful ultrasound directed PICC line placement. The PICC line is at the superior vena cava/right atrium junction and is ready for use. POS: [facility]
[2018-01-28 12:08] VITALS: BP 126/74; TEMP 98.6
--- NOTE | 2018-01-28 15:42 | DIS ---
DATE OF ADMISSION: 01/24/2018 DATE OF DISCHARGE: 01/28/2018 CONDITION AT THE TIME OF DISCHARGE: Stable and improved. DISCHARGE DISPOSITION: Home. PRIMARY CARE PHYSICIAN: Out of town. DISCHARGE DIAGNOSES: 1. Sepsis. 2. Urinary tract infection secondary to resistant Escherichia coli. 3. Immunocompromised status due to rheumatoid arthritis medications. 4. Rheumatoid arthritis. 5. History of ESBL Escherichia coli. 6. History of Clostridium difficile colitis. DISCHARGE MEDICATIONS: Rocephin 2 grams daily for 7 more days and Zofran as needed 4 mg q.6 hours p. r.n. Resume home medication as follows: Celexa 60 mg daily, Prevacid 15 mg daily, Aldactone 100 mg daily, pramipexole 0.5 mg p.r.n., Cimzia 400 mg every month. CONSULTATIONS: Infectious Disease, Dr. Pan. PROCEDURES DONE IN THE HOSPITAL: Include CT scan of the abdomen and pelvis which does not show any e vidence of nephrolithiasis or obstruction. She does have mesenteric haziness most prominent in the l eft abdomen which is nonspecific. HISTORY OF PRESENT ILLNESS: Ms. Sultana is a very pleasant 47-year-old female with history of rheuma toid arthritis E. coli, which was ESBL in the past as well as Clostridium difficile, who presented to the emergency room with complaints of dysuria and increased urinary tract frequency, high grade feve r and chills. Upon presentation in the emergency room, she had high fever of 104 and was tachycardic with a pulse of 124. She had elevated leukocytosis and lactic acid. Urinalysis was consistent with urinary tract infection. She was started on IV Rocephin in the ER and was admitted for sepsis tad mendoza to urinary tract infection. Please see admission history and physical for further needed. HOSPITAL COURSE: The patient had slow improvement in her symptoms and continued to spike fever for m ultiple days. Urine culture and blood cultures were sent. Her urine was positive for E. coli which was resistant to ampicillin, levofloxacin, as well as Bactrim. She was treated with IV meropenem, bu t for the discharge purposes, ID was consulted with regards to the choice of antibiotics on discharge . Dr. Pan saw the patient and recommended that she should get the PICC line and get Rocephin for at l east 1 week as an outpatient by IV route, this was arranged. Postvoid residuals were checked and she had 70-80 mL urine at the most in the bladder. CT scan did not show any specific findings. On the day of discharge, her fever has improved. Her last T-max was 100.5, which was last night at m idnight. She has not been having any high-grade fevers at this time. Her leukocytosis has resolved. WBC has improved from 17.9-10.6, neutrophils of 46.6%. Serum chemistries unremarkable. She had so me hypokalemia upon presentation, which was supplemented and it resolved. She was seen and examined prior to discharge. PHYSICAL EXAMINATION: This morning, VITAL SIGNS: Temperature 98.6, pulse of 90, respirations 16, saturating 97% on room air, blood press ure 126/74. GENERAL: No acute distress. Awake, alert, oriented x3, sitting up in bed. HEENT: Mucous membrane is moist and pink. CHEST: Clear to auscultation without any wheezing, rales or rhonchi. CARDIOVASCULAR: Rate and rhythm is regular without any murmur, rubs or gallops. ABDOMEN: Soft, nontender, nondistended with positive bowel sounds. Discharge plan was discussed with the patient and family and they verbalized understanding. Outpatie nt antibiotics were arranged for them. The patient will self-inject as she works in the [employer]. She was once again taught by the nursing staff how to do self-injection of Rocephin. One-week wo rth of prescriptions were provided to the patient.
== END 2018-01-28 14:43 | disposition home or self-care (01) | DRG 872 ==
LOC: ERS 16:52 → T4-B 18:18
PROVIDERS: ADMIT Internal Medicine; ATTEND Internal Medicine
PROC: 02HV33Z Insertion of Infusion Device into Superior Vena Cava, Percutaneous Approach (ICD-10-PCS; principal; 2018-01-28)
DX: A41.51 Sepsis due to Escherichia coli [E. coli] (principal); N39.0 Urinary tract infection, site not specified; E87.1 Hypo-osmolality and hyponatremia; M06.9 Rheumatoid arthritis, unspecified; Z87.440 Personal history of urinary (tract) infections; Z79.899 Other long term (current) drug therapy
CPT/HCPCS: 36415; 36569; 74176; 80048; 80053; 81003; 81015; 83605; 85025; 87040; 87077; 87086; 87186; 96365; 96366; 96368; 96375; A4216; C1751; J0696; J1200; J1650; J1885; J2185; J2405; J2765; J7050